=== PATIENT | female | born 1970 | race Caucasian/White ===

== ENCOUNTER 2020-06-15 02:20 | Outpatient (CLI) | payer MEDICAID, SELFPAY ==
[2020-06-15 08:25] LABS: Calculated LDL 123 mg/dL (<100); Cholesterol 194 mg/dL (<200); Glucose 86 mg/dL (74-106); HDL Cholesterol 47 mg/dL (40-60); Triglyceride 123 mg/dL (<150)
== END 2020-06-15 02:40 ==
PROVIDERS: PCP Nurse Practitioner Family; Visit Provider Nurse Practitioner Family
DX: Z00.00 Encounter for general adult medical examination without abnormal findings (principal)
CPT/HCPCS: 36415; 80061; 82947

== ENCOUNTER 2020-06-16 09:51 | Emergency (ER) | payer MEDICAID, SELFPAY ==
[2020-06-16] VITALS (37 sets, daily range): BP systolic 106–138; BP diastolic 45–113; PULSE 51–88; RESP 7–29; TEMP 36.5; O2SAT 93–100
--- NOTE | 2020-06-16 09:44 | ED.GENADUL_ITS ---
Discharge Plan Disposition Patient Disposition: HOME Condition: Improving Discharge Details Clinical Impression: Colitis, Vomiting and diarrhea Primary Care Provider: Mathew Martinez ED Provider: Francoise Salgado Home Meds and New Rx's Prescriptions: New ciprofloxacin HCl [Cipro] 500 mg tablet 500 mg PO BID 5 Days Qty: 10 RF: 0 metronidazole [Flagyl] 500 mg tablet 500 mg PO BID 5 Days Qty: 10 RF: 0 promethazine 25 mg tablet 25 mg PO TID PRN (Reason: nausea and vomiting) Qty: 7 RF: 0 Continued fexofenadine [Vickie] 60 MG tablet 60 mg DAILY RF: 0 cholecalciferol (vitamin D3) 400 UNIT tablet,chewable 400 unit PO RF: 0 meclizine 25 MG tablet,chewable 25 mg PO PRN Qty: 30 RF: 0 valacyclovir [Valtrex] 1,000 MG tablet 1,000 mg PO DAILY Qty: 5 RF: 3 zolmitriptan [Zomig] 5 MG tablet 2.5 - 5 mg PO DAILY PRNQty: 10 RF: 6 magnesium hydroxide [Milk of Magnesia] 400 MG/5 ML suspension 30 ml PO HS PRNQty: 1 RF: 3 docusate sodium [Colace] 100 MG capsule 300 mg PO HS Qty: 30 RF: 3 atenolol 25 MG tablet 25 mg PO DAILY Qty: 30 RF: 3 glycerin (adult) [Suppository Adult] 1 EACH suppository 1 ea RC PRN Qty: 60 RF: 3 fluconazole 150 MG tablet 150 mg PO ONCE Qty: 1 RF: 4 ibuprofen [Advil] 200 MG tablet 800 mg PO PRN (Reason: Pain) RF: 0 Discharge Instructions Instructions: Acute Nausea and Vomiting (ED), Acute Diarrhea (ED), Colitis (ED) Additional Instructions: Drink plenty of fluids and get plenty of rest. Take the Phenergan as needed and directed for nausea and vomiting. Take the antibiotics until finished. You will receive a call from care management regarding a follow-up appointment with the primary care doctor to establish care for reassessment of your vomiting and diarrhea. Return immediately to the emergency department if you develop any worsening or new concerning symptoms. Discharge Data Discharge Date/Time-TO BE ENTERED AT DEPARTURE: 06/16/20 15:25 Discharge Physician: Francoise Salgado Medical Decision Making 1100 -- 49yo F with vomiting and lower abdominal pain since this morning. Vitals within normal limits. She appears uncomfortable and is actively vomiting upon evaluation. She has epigastric diffuse lower abdominal tenderness. She appears nontoxic. Differential diagnosis includes appendicitis, colitis, diverticulitis, gastroenteritis, bowel obstruction. She has an allergy to iodine which causes hives. Discussed with radiology who will give patient barium p.o. Will check screening labs, give a dose of Compazine and morphine and reassess. Labs reviewed. White blood cell count 12. Troponin negative. Lipase normal. 1145 -- Patient reassessed and she now has watery brown diarrhea. Stool sample obtained. She is still complaining of nausea, will give a dose of Phenergan and Dilaudid and reassess. Patient just started drinking p.o. contrast for CAT scan. 1300 -- patient reassessed and she has had multiple episodes of watery mixed with formed brown stool. C. difficile screen negative. 1400 --CT reviewed and notes left-sided colitis. There is also a possible subtle lytic bone lesion to L1. Patient was informed of results of CT. Patient reassessed and she feels much better. She was able to take p.o. and feels good to go home. She had significant abdominal pain and a white blood cell count of 12, will cover with antibiotics. Patient placed on care management list to arrange for a follow-up appointment with the PCP to establish care and follow-up on colitis and L1 lytic bone lesion. Usual and customary return precautions given prior to discharge. Medical Records Medical records reviewed: Yes I reviewed the patient's medical records. Imaging Data Radiologic Study: Radiologist's impression: CT Abdomen And Pelvis Without Contrast Exam date and time: 06/16/2020 10:22 AM Age: 49 years old Clinical indication: Other: Epigastric and diffuse lover abd pain TECHNIQUE: Imaging protocol: Computed tomography of the abdomen and pelvis without contrast. Radiation optimization: All CT scans at this facility use at least one of these dose optimization techniques: automated exposure control; mA and/or kV adjustment per patient size (includes targeted exams where dose is matched to clinical indication); or iterative reconstruction. Other technique: GI contrast given. COMPARISON: No relevant prior studies available. FINDINGS: Liver: Normal. No mass. Gallbladder and bile ducts: Normal. No calcified stones. No ductal dilation. Pancreas: Normal. No ductal dilation. Spleen: Normal. No splenomegaly. Adrenals: Normal. No mass. Kidneys and ureters: Normal. No hydronephrosis. Stomach and bowel: There is focal wall edema involving the splenic flexure and descending colon with mild adjacent inflammatory change. This extends to a lesser degree to the rectal level. There may be mild involvement of the distal transverse colon. Appendix: No evidence of appendicitis. Intraperitoneal space: Unremarkable. No free air. No significant fluid collection. Vasculature: Unremarkable. No abdominal aortic aneurysm. Lymph nodes: Unremarkable. No enlarged lymph nodes. Urinary bladder: The bladder is not well distended. Reproductive: Status post bilateral tubal ligation. Bones/joints: There is some ill-defined lucency inferior endplate L1 at the midline into the left of midline 11 mm. Soft tissues: Unremarkable. IMPRESSION: 1. Left-sided colitis. 2. Concern for subtle lytic bone lesion L1. Lab Data Lab results reviewed: Yes I reviewed the patient's lab results. Labs: 06/16/20 11:45 Stool Clostridioides difficile Screen - Final Laboratory Tests Range/Units 06/16/20 06/16/20 06/16/20 10:04 10:04 11:43 WBC (4.4-10.8) 10^3/uL 12.27 H RBC (3.93-5.22) 10^6/uL 4.48 Hgb (11.2-15.7) g/dL 11.1 L Hct (36.0-46.0) % 35.7 L MCV (80-95) fL 79.7 L MCH (27.0-33.0) pg 24.8 L MCHC (32.0-36.0) % 31.1 L RDW (11.7-14.6) % 14.8 H Plt Count (130-400) 10^3/uL 482 H MPV (8.0-11.0) fL 9.8 Immature Gran % 0.4 Neutrophils % 79.1 Lymphocytes % 14.5 Monocytes % 3.4 Eosinophils % 2.0 Basophils % 0.6 Nucleated RBC % % 0 Absolute Neutrophils (1.2-6.7) 10^3/uL 9.71 H Absolute Lymphocytes (1.2-3.4) 10^3/uL 1.78 Absolute Monocytes (0.1-0.8) 10^3/uL 0.42 Absolute Eosinophils (0.0-0.7) 10^3/uL 0.25 Absolute Basophils (0.0-0.2) 10^3/uL 0.07 Sodium (136-145) mmol/L 136 Potassium (3.5-5.1) mmol/L 3.4 L Chloride (98-107) mmol/L 104 Carbon Dioxide (21.0-32.0) mmol/L 21.3 Anion Gap (3-11) mmol/L 10.7 BUN (7-18) mg/dL 22 H Creatinine (0.55-1.02) mg/dL 0.73 Estimated GFR/1.73 m2 (mL/min/1.73m2) >= 60.00 Glucose (74-106) mg/dL 142 H Calcium (8.5-10.1) mg/dL 9.3 Magnesium (1.8-2.4) mg/dL 2.3 Total Bilirubin (0.2-1.0) mg/dL 0.6 AST (15-37) U/L 16 ALT (14-59) U/L 18 Alkaline Phosphatase (46-116) U/L 62 Troponin I (<0.06) ng/mL < 0.05 Total Protein (6.4-8.2) g/dL 7.0 Albumin (3.4-5.0) g/dL 3.5 Lipase (73-393) U/L 78 Stl C.difficile Tox PCR Cancelled HPI General Mode of arrival: EMS . Date/Time Provider Initiated Documentation: 06/16/20 10:43 . Limitations to Documentation: no limitations . Information obtained by: patient . HPI Narrative: Patient is a 49-year-old female with a history of migraine, depression who presents for sudden onset of vomiting and lower abdominal pain that started this morning. Patient states she has vomited multiple times which is mainly been clear and bile. She states her abdominal pain feels severe, constant and cramping across the lower abdomen. She states she has been constipated with small hard bowel movements for the past few days but states this is not unusual for her. She denies taking any recent narcotics. She denies any recent antibiotics, recent travel, recent known sick contacts. She denies any fever, chest pain, shortness of breath, diarrhea or urinary symptoms. Related Data Home Medications Medication Instructions Recorded Confirmed cholecalciferol (vitamin D3) 400 unit PO tab.chew 10/25/12 fexofenadine [Vickie] 60 mg DAILY 10/25/12 meclizine 25 mg PO PRN #30 tab-cap 12/22/12 ibuprofen [Advil] 800 mg PO PRN 12/23/12 12/23/12 valacyclovir [Valtrex] 1,000 mg PO DAILY #5 tab-cap 02/01/14 zolmitriptan [Zomig] 2.5 - 5 mg PO DAILY PRN #10 tab 02/01/14 docusate sodium [Colace] 300 mg PO HS #30 tab-cap 09/06/14 magnesium hydroxide [Milk of 30 ml PO HS PRN #1 bottle 09/06/14 Magnesia] atenolol 25 mg PO DAILY #30 tab-cap 09/11/14 glycerin (adult) [Suppository 1 ea RC PRN #60 supp.rect 09/11/14 Adult] fluconazole 150 mg PO ONCE #1 tab-cap 10/10/14 ciprofloxacin HCl [Cipro] 500 mg PO BID 5 Days #10 tab 06/16/20 metronidazole [Flagyl] 500 mg PO BID 5 Days #10 tab 06/16/20 promethazine 25 mg PO TID PRN #7 tab 06/16/20 Previous Rx's Medication Instructions Recorded ciprofloxacin HCl [Cipro] 500 mg PO BID 5 Days #10 tab 06/16/20 metronidazole [Flagyl] 500 mg PO BID 5 Days #10 tab 06/16/20 promethazine 25 mg PO TID PRN #7 tab 06/16/20 Allergies Allergy/AdvReac Type Severity Reaction Status Date / Time iodine Allergy Mild HIVES Unverified 10/10/14 14:29 latex Allergy BLISTERS Unverified 10/10/14 14:29 Review of Systems All systems reviewed & are unremarkable except as noted in HPI and below Constitutional Constitutional: Reports as per HPI, Denies chills and Denies fever(s) Eyes Eyes: Denies blurry vision ENT Ears, Nose, Mouth, and Throat: Denies dizziness, Denies sore throat and Denies throat swelling Cardiovascular Cardiovascular: Denies chest pain and Denies dyspnea Respiratory Respiratory: Denies cough and Denies dyspnea Gastrointestinal Gastrointestinal: Reports abdominal pain, Denies diarrhea and Denies vomiting Genitourinary Genitourinary: Denies hematuria and Denies dysuria Musculoskeletal Musculoskeletal: Denies back pain and Denies numbness Integumentary/Breasts Skin/Breast: Denies lesions and Denies rash Neurologic Neurologic: Denies dizziness, Denies localized weakness and Denies numbness Allergic/Immunologic Allergic/Immunologic: Denies throat swelling [facility] Medical History (Updated 06/16/20 @ 14:51 by Francoise Salgado DO) Depression Genital herpes simplex One outbreak on gluteus - no recurrences. Migraine Seasonal allergic rhinitis Surgical History wisdom teeth extraction general anesthesia - no N/V Family History Sister No problems noted. Social History Smoking/Tobacco Use Status: Never Drug use: Never Substance use type: does not use Do you feel safe at home: Yes Do you feel safe in your relationship?: Yes Exam Const General: cooperative and in distress Orientation: alert, awake and oriented x3 HENMT Head: normal to inspection Face and sinus: normal facial exam Eyes General: appearance normal, both eyes and all related structures EOM: EOM intact bilaterally Neck Neck: normal visual inspection and No submandibular swelling Lymphatic: no lymphadenopathy noted Chest Chest: normal inspection of the chest and no tenderness Resp Effort & Inspection: normal respiratory effort and able to speak in complete sentences Auscultation: clear to auscultation bilaterally Cardio Rate: regular rate Rhythm: regular rhythm GI Inspection: normal to inspection Palpation: soft, not firm, not rigid and tender in the epigastrum, in the LLQ, in the RLQ and suprapubicly Auscultation: hypoactive bowel sounds Back/Spine/Pelvis Pelvis: no pain with anterior-posterior compression Skin General skin exam: no rashes or lesions noted Neuro General: patient alert, patient awake and patient oriented x3 Cognition: normal cognition Speech: speech normal Motor: muscle tone normal throughout Sensory Exam: no sensory deficits noted Extrem General: normal to inspection, full ROM, capillary refill normal, no calf tenderness bilaterally and no edema Psych Appearance: grossly normal Mental Status: mental status grossly normal Speech and Movement: speech and movement normal Affect: normal affect
[2020-06-16] MEDS: Ondansetron 4 MG/2 ML VIAL (10:06)
[2020-06-16 10:17] LABS: Abs Immature Grans 0.05 10^3/uL (0.0-0.06); Absolute Basophil Count 0.07 10^3/uL (0.0-0.2); Absolute Lymphocyte Count 1.78 10^3/uL (1.2-3.4); Absolute Monocyte Count 0.42 10^3/uL (0.1-0.8); Absolute Neutrophil Count 9.71 10^3/uL (1.2-6.7); Basophils % 0.6; HCT 35.7 % (36.0-46.0); HGB 11.1 g/dL (11.2-15.7); Immature Grans % 0.4; Lymphocytes % 14.5; MCH 24.8 pg (27.0-33.0); MCHC 31.1 % (32.0-36.0); MCV 79.7 fL (80-95); MPV 9.8 fL (8.0-11.0); Monocytes % 3.4; Neutrophils % 79.1; Nucleated RBC 0 %; Platelet Count 482 10^3/uL (130-400); RBC 4.48 10^6/uL (3.93-5.22); RDW 14.8 % (11.7-14.6); RDW-SD 43.1 fL; WBC 12.27 10^3/uL (4.4-10.8)
[2020-06-16 10:20] LABS: Absolute Eosinophil Count 0.25 10^3/uL (0.0-0.7)
[2020-06-16] MEDS: Normal Saline 1,000 ML 1000 ML IV ×2 (10:26→14:00)
[2020-06-16 10:32] LABS: ALT 18 U/L (14-59); AST 16 U/L (15-37); Albumin 3.5 g/dL (3.4-5.0); Alkaline Phosphatase 62 U/L (46-116); Anion Gap 10.7 mmol/L (3-11); BUN 22 mg/dL (7-18); Bilirubin, Total 0.6 mg/dL (0.2-1.0); CO2 21.3 mmol/L (21.0-32.0); CREATININE 0.73 mg/dL (0.55-1.02); Calcium 9.3 mg/dL (8.5-10.1); Chloride 104 mmol/L (98-107); Glucose 142 mg/dL (74-106); Lipase 78 U/L (73-393); Magnesium 2.3 mg/dL (1.8-2.4); Potassium 3.4 mmol/L (3.5-5.1); Sodium 136 mmol/L (136-145); Troponin I < 0.05 ng/mL (<0.06)
[2020-06-16] MEDS: Prochlorperazine 10 MG/2 ML VIAL IVP (10:42)
[2020-06-16] MEDS: diphenhydrAMINE 50 MG/ML VIAL 25 MG IVP (10:42)
[2020-06-16] MEDS: HYDROmorphone 2 MG/ML VIAL 0.5 MG IVP (12:03)
--- NOTE | 2020-06-16 14:00 | DI.CT_ITS ---
EXAM: CT ABDOMEN PELVIS WO CLINICAL HISTORY: epigastric and diffuse lower abd pain COMPARISON: US ABDOMEN ULTRASOUND (P) from 03/21/2013 US ABDOMEN ULTRASOUND (P) from 03/21/2013 FINDINGS: CT examination of the abdomen and pelvis was performed without IV contrast administration. Oral cont rast was administered and lies in the stomach and duodenum. Images obtained through the lung bases are unremarkable. There are multiple small low-attenuation hepatic lesions, largest lies in the right hepatic lobe late rally and measures up to about 15 millimeters in diameter. The small hepatic lesions have fairly davon ogeneous internal appearance and measure near water density but the largest lesion and a couple of th e other small lesions have questionably irregular borders. Additional evaluation with hepatic ultras ound recommended to confirm that these are cysts. Spleen is unremarkable. Pancreas unremarkable by CT criteria. Gallbladder and bile ducts are CT nor mal. Abdominal aorta is of normal diameter. No significant abdominal wall hernia seen. Adrenals and kidneys are unremarkable. No urinary tract calcification or obstruction. Vascular clips noted in the adnexa bilaterally. Uterus grossly unremarkable in appearance by noncont rast criteria. Appendix is not specifically visualized but there is no evidence of appendicitis. There is apparent wall thickening and pericolonic fat edema descending colon and splenic flexure musa on, the findings are suspicious for colitis. There is no evidence of obstruction. Incidental note is made of a poorly defined rounded lucent lesion of the vertebral body of L1, this m easures up to about 15 millimeters in diameter on vertical axis. This may represent hemangioma but m alignancy is not excluded. Correlation with lumbosacral spine MRI recommended. No additional convin cing lytic lesions identified in the visualized bones. IMPRESSION: Findings consistent with colitis involving left colon as described above. Indeterminate lytic lesion of L1 vertebral body. Correlation with MRI of the lumbar spine recommende d with contrast enhanced MRI obtained if the lesion does not have typical hemangioma appearance on no ncontrast MRI. RADIATION DOSE DELIVERED: 897.32mGy.cm Total DLP
--- NOTE | 2020-06-16 14:06 | DI.VRAD_ITS ---
PROCEDURE INFORMATION: Exam: CT Abdomen And Pelvis Without Contrast Exam date and time: 06/16/2020 10:22 AM Age: 49 years old Clinical indication: Other: Epigastric and diffuse lover abd pain TECHNIQUE: Imaging protocol: Computed tomography of the abdomen and pelvis without contrast. Radiation optimization: All CT scans at this facility use at least one of these dose optimization techniques: automated exposure control; mA and/or kV adjustment per patient size (includes targeted exams where dose is matched to clinical indication); or iterative reconstruction. Other technique: GI contrast given. COMPARISON: No relevant prior studies available. FINDINGS: Liver: Normal. No mass. Gallbladder and bile ducts: Normal. No calcified stones. No ductal dilation. Pancreas: Normal. No ductal dilation. Spleen: Normal. No splenomegaly. Adrenals: Normal. No mass. Kidneys and ureters: Normal. No hydronephrosis. Stomach and bowel: There is focal wall edema involving the splenic flexure and descending colon with mild adjacent inflammatory change. This extends to a lesser degree to the rectal level. There may be mild involvement of the distal transverse colon. Appendix: No evidence of appendicitis. Intraperitoneal space: Unremarkable. No free air. No significant fluid collection. Vasculature: Unremarkable. No abdominal aortic aneurysm. Lymph nodes: Unremarkable. No enlarged lymph nodes. Urinary bladder: The bladder is not well distended. Reproductive: Status post bilateral tubal ligation. Bones/joints: There is some ill-defined lucency inferior endplate L1 at the midline into the left of midline 11 mm. Soft tissues: Unremarkable. IMPRESSION: 1. Left-sided colitis. 2. Concern for subtle lytic bone lesion L1. Dictated and Authenticated by: Merari Morley MD. Ordering:LASHELL Owusu MD
[2020-06-16] MEDS: metroNIDAZOLE 500 MG TAB, 3 TABS/BTL PO (15:07)
== END 2020-06-16 15:25 | disposition home or self-care (01) ==
PROVIDERS: Emergency Provider Physician Assistant; PCP Nurse Practitioner Family
DX: R10.30 Lower abdominal pain, unspecified (principal); K52.9 Noninfective gastroenteritis and colitis, unspecified; R19.4 Change in bowel habit; R11.2 Nausea with vomiting, unspecified; R93.7 Abnormal findings on diagnostic imaging of other parts of musculoskeletal system; Z91.041 Radiographic dye allergy status
CPT/HCPCS: 36415; 80053; 83690; 87493; 87505; 96361; 96365; 96375; 99284; 74176; 83735; 84484; 85025; 87324; 99285; J0780; J1200; J2405

== ENCOUNTER 2020-06-19 09:27 | Outpatient (CLI) | payer MEDICAID, SELFPAY ==
--- NOTE | 2020-06-19 09:32 | DI.RAD_ITS ---
EXAM: XR SHOULDER LT COMPLETE 2+V CLINICAL HISTORY: lt shoulder pain TECHNIQUE: COMPARISON: No exams were available for comparison FINDINGS: Two views were obtained. There may be slight narrowing of cartilaginous joint space of the glenohume ral joint. Mild marginal osteophyte formation noted at the glenohumeral and acromioclavicular articu lations. No other significant bony or soft tissue abnormality seen. IMPRESSION: Mild DJD as described above. RADIATION DOSE DELIVERED: Total DLP
--- NOTE | 2020-06-19 10:14 | DI.RAD_ITS ---
EXAM: XR LUMBAR SPINE AP, LAT CLINICAL HISTORY: lytic lesion TECHNIQUE: COMPARISON: CT CT ABDOMEN PELVIS WO from 06/16/2020 FINDINGS: Three views were obtained. Note is made of contrast material in the colon. Bowel gas pattern is unr emarkable. Recent abdominal CT showed question lytic lesion L1 vertebral body. This is not appreciated on plain films. Correlation with MRI of the lumbosacral spine with and without contrast is recommended. Mild degenerative changes of the lumbar spine noted. IMPRESSION: Suspected lytic lesion seen on CT of the L1 vertebral body is not appreciated on plain films. This does not exclude the possibility of malignancy, MR examination of the lumbar spine with and without c ontrast administration is recommended. RADIATION DOSE DELIVERED: Total DLP
== END 2020-06-19 09:47 ==
PROVIDERS: PCP Nurse Practitioner Family; Referring Provider Nurse Practitioner Family; Visit Provider Physician Assistant Surgical
DX: M89.8X8 Other specified disorders of bone, other site; M19.012 Primary osteoarthritis, left shoulder
CPT/HCPCS: 72100; 73030

== ENCOUNTER 2020-10-01 15:35 | Outpatient (REF) | payer MEDICAID, SELFPAY ==
[2020-10-01 22:02] LABS: Abs Immature Grans 0.02 10^3/uL (0.0-0.06); Absolute Basophil Count 0.11 10^3/uL (0.0-0.2); Absolute Eosinophil Count 0.38 10^3/uL (0.0-0.7); Absolute Lymphocyte Count 2.21 10^3/uL (1.2-3.4); Absolute Monocyte Count 0.66 10^3/uL (0.1-0.8); Absolute Neutrophil Count 4.81 10^3/uL (1.2-6.7); Basophils % 1.3; Eosinophils % 4.6; HCT 34.8 % (36.0-46.0); HGB 10.5 g/dL (11.2-15.7); Immature Grans % 0.2; MCH 23.5 pg (27.0-33.0); MCHC 30.2 % (32.0-36.0); MCV 77.9 fL (80-95); Monocytes % 8.1; Neutrophils % 58.8; Nucleated RBC 0 %; Platelet Count 434 10^3/uL (130-400); RBC 4.47 10^6/uL (3.93-5.22); RDW 15.3 % (11.7-14.6); RDW-SD 43.2 fL; WBC 8.19 10^3/uL (4.4-10.8)
[2020-10-01 22:08] LABS: COMMENT (LAB VIEW ONLY) 168.29 mg/dL; Microalb ug/mg Crea 14.9 ug/mg Cr
[2020-10-01 22:21] LABS: Iron 13 ug/dL (50-170); Total Iron Binding Capacity 390 ug/dL (250-450); Transferrin Sat 3 % (15-50)
[2020-10-01 22:22] LABS: Hemoglobin A1C 5.8 % (<5.7)
[2020-10-01 22:58] LABS: Ferritin 6 ng/mL (8-252); Magnesium 2.2 mg/dL (1.8-2.4); TSH (W/Ref FT4) 2.44 uIU/mL (0.36-3.74); Vitamin B12 362 pg/mL (193-986)
== END 2020-10-01 15:36 | disposition home or self-care (01) ==
LOC: NCHCN 15:35
PROVIDERS: PCP Nurse Practitioner Family; Visit Provider Nurse Practitioner Family
DX: K29.50 Unspecified chronic gastritis without bleeding (principal); I10 Essential (primary) hypertension; K59.09 Other constipation; R42 Dizziness and giddiness; E66.9 Obesity, unspecified; N95.8 Other specified menopausal and perimenopausal disorders; R06.83 Snoring; G43.109 Migraine with aura, not intractable, without status migrainosus
CPT/HCPCS: 82043; 82570; 82607; 82728; 83036; 83540; 83550; 83735; 84443; 85025

== ENCOUNTER 2020-10-08 00:51 | Outpatient (CLI) | payer MEDICAID, SELFPAY ==
--- NOTE | 2020-10-08 | DI.MAMMO_ITS ---
EXAM: MG MAMMO SCREENING CLINICAL HISTORY: SCREENING, Z12.31. TECHNIQUE: Bilateral full field digital CC and MLO mammographic images were obtained with 3D tomosyn thesis and utilizing computer aided detection (CAD). COMPARISON: Prior mammograms dating back to 2011, the most recent being September 2013. There are no interval mammograms since 2013. Both grandmothers were diagnosed with breast cancer. FINDINGS: The fibroglandular tissue is moderately dense, this decreasing the sensitivity mammogram for finding in underlying lesions. There are no spiculated masses nor malignant appearing microcalcification groups. There are multiple new bilateral benign-appearing microcalcifications which were not evident in 2014. No new architectur al distortion or skin thickening-traction IMPRESSION: Benign findings. No radiographic evidence of malignancy. BI-RADS Category 2 - Benign Findings Breast Density - Category C - Heterogeneously dense Breast density Category C or D implies that the patient has dense breast tissue. Dense breast tissue can make it harder to find cancer on a mammogram. Dense breast tissue is also associated with an incr eased risk of breast cancer. This information about the result of the mammogram report was provided to the patient to raise their awareness. Use this report when you speak with the patient about their risks for breast cancer, which includes their family history. At that time, you may recommend additional screening tests (Ultrasoun d or MRI) as these tests may add significant information. A negative radiographic report should not delay biopsy if a dominant or clinically suspicious mass is present. Up to ten percent of cancers are not identified on mammography. A negative report may reinforce clinical impression. Adenosis and dense breasts may obscure an underlying neoplasm. False positive reports average 6 to 10%. Patient will receive a letter notifying them of these results.
== END 2020-10-08 00:52 ==
LOC: DI 00:51
PROVIDERS: PCP Nurse Practitioner Family; Visit Provider Nurse Practitioner Family
DX: Z12.31 Encounter for screening mammogram for malignant neoplasm of breast (principal); R92.0 Mammographic microcalcification found on diagnostic imaging of breast
CPT/HCPCS: 77063; 77067

== ENCOUNTER 2020-11-26 12:56 | Outpatient (REF) | payer MEDICAID, SELFPAY ==
--- NOTE | 2020-11-26 10:50 | PAPFT_PTH ---
PATIENT: Kathleen Sanchez LOC: [facility]#:[id number] AGE/SX: 50/F ROOM: RE11/26/[address]: Teodora Carty : 1970 BED: DIS: 11/26/2020 SPEC #: [id number] RECD: 11/26/20 13:23 STATUS: GUILLE REJose A #: [id number] NATAN: 11/26/20 10:[address]: Teodora Carty DEPT: [facility] Cytology RECD BY: Rosaura Cleveland ENTERED: 11/26/20 13:23 SP TYPE: PAPFT OTHR DR: Mathew Martinez Tissues: 1 - CX/ENDOCX FOR PAP SMEARS Procedures: PAP THIN PREP/UVM Screening HPV DNA PROBE Comments: [id number]
[2020-11-26 21:32] LABS: Abs Immature Grans 0.02 10^3/uL (0.0-0.06); Absolute Basophil Count 0.06 10^3/uL (0.0-0.2); Absolute Eosinophil Count 0.35 10^3/uL (0.0-0.7); Absolute Monocyte Count 0.62 10^3/uL (0.1-0.8); Absolute Neutrophil Count 3.62 10^3/uL (1.2-6.7); Basophils % 0.9; Eosinophils % 5.2; HCT 37.5 % (36.0-46.0); HGB 11.8 g/dL (11.2-15.7); Immature Grans % 0.3; MCH 25.3 pg (27.0-33.0); MCHC 31.5 % (32.0-36.0); MCV 80.3 fL (80-95); Monocytes % 9.3; Neutrophils % 54.3; Nucleated RBC 0 %; Platelet Count 361 10^3/uL (130-400); RBC 4.67 10^6/uL (3.93-5.22); RDW 19.3 % (11.7-14.6); RDW-SD 55.7 fL; WBC 6.67 10^3/uL (4.4-10.8)
[2020-11-26 21:40] LABS: Iron 29 ug/dL (50-170); Total Iron Binding Capacity 336 ug/dL (250-450); Transferrin Sat 9 % (15-50)
[2020-11-26 21:54] LABS: Ferritin 13 ng/mL (8-252)
== END 2020-11-26 12:57 | disposition home or self-care (01) ==
LOC: NCHCN 12:56
PROVIDERS: PCP Nurse Practitioner Family; Visit Provider Nurse Practitioner Family
DX: D50.9 Iron deficiency anemia, unspecified (principal); R73.03 Prediabetes; E66.9 Obesity, unspecified; N95.9 Unspecified menopausal and perimenopausal disorder; Z12.4 Encounter for screening for malignant neoplasm of cervix; Z01.419 Encounter for gynecological examination (general) (routine) without abnormal findings; Z11.51 Encounter for screening for human papillomavirus (HPV)
CPT/HCPCS: 88142; 82728; 83540; 83550; 85025; 87624

== ENCOUNTER 2021-03-04 10:34 | Outpatient (REF) | payer MEDICAID, SELFPAY ==
[2021-03-04 17:27] LABS: Hemoglobin A1C 5.7 % (<5.7)
[2021-03-04 17:39] LABS: Iron 166 ug/dL (50-170)
== END 2021-03-04 10:35 | disposition home or self-care (01) ==
LOC: NCHCN 10:34
PROVIDERS: PCP Nurse Practitioner Family; Visit Provider Nurse Practitioner Family
DX: D50.9 Iron deficiency anemia, unspecified; E66.3 Overweight; R73.03 Prediabetes; M75.01 Adhesive capsulitis of right shoulder; N95.9 Unspecified menopausal and perimenopausal disorder; I10 Essential (primary) hypertension
CPT/HCPCS: 83036; 83540

== ENCOUNTER → 2022-07-16 01:40 | Outpatient (CLI) | payer MEDICAID, SELFPAY ==
--- NOTE | 2022-07-16 | DI.MAMMO_ITS ---
Exam(s) MAMMO SCREENING EXAM: MAMMO SCREENING CLINICAL HISTORY: SCREENING MAMMO FOR BREAST CANCER Z12.31 TECHNIQUE: Bilateral full field digital CC and MLO mammographic images were obtained with 3D tomosyn thesis and utilizing computer aided detection (CAD). COMPARISON: Available for comparison. FINDINGS: Masses/Architectural Distortion: None seen. Microcalcifications: No suspicious pleomorphic-type are seen. Skin Thickening/Nipple Retraction: None. IMPRESSION: 1. No significant interval change with no specific features of malignancy noted. 2. Unless there is more urgent need, screening mammography is recommended, as per [employer] guidelines. BI-RADS Category 1 - Negative Breast Density - Category C - Heterogeneously dense Breast density category C or D implies that the patient has dense breast tissue. Dense breast tissue is very common and is not abnormal but dense breast tissue can make it harder to find cancer on a ma mmogram. Also, dense breast tissue may increase their breast cancer risk. This information about the result of the mammogram report was provided to the patient to raise their awareness. Use this report when you speak with the patient about their risks for breast cancer, which includes their family hist ory. At that time, you may recommend for more screening tests (Ultrasound or MRI) as they might be us eful based on their risk. A negative radiographic report should not delay biopsy if a dominant or clinically suspicious mass is present. Up to ten percent of cancers are not identified on mammography. A negative report may reinforce clinical impression. Adenosis and dense breasts may obscure an underlying neoplasm. False positive reports average 6 to 10%. Patient will receive a letter notifying them of these results.
== END ==
PROVIDERS: PCP Nurse Practitioner Family; Visit Provider Nurse Practitioner Family
DX: Z12.31 Encounter for screening mammogram for malignant neoplasm of breast (principal)
CPT/HCPCS: 77063; 77067

== ENCOUNTER 2023-01-21 13:30 | Outpatient (REF) | payer MEDICAID, SELFPAY ==
--- NOTE | 2023-01-21 10:00 | SKI_PTH ---
[id number] #:[id number] AGE/SX: 52/F ROOM: RE01/21/[address]: Shona Pritchett : 1970 BED: DIS: 01/21/2023 SPEC #: [id number] RECD: 01/21/23 17:51 STATUS: GUILLE DEAN #: [id number] NATAN: 01/21/23 10:[address]: Shona Pritchett DEPT: Surgical Specimen RECD BY: Rosaura Cleveland ENTERED: 01/21/23 17:52 SP TYPE: DANA JORDAN DR: Teodora Carty Tissues: 1 - SKIN BIOPSY(SHAVE/PUNCH) Procedures: SKIN LEVEL 4 Comments: [id number]
== END 2023-01-21 13:31 | disposition home or self-care (01) ==
LOC: NCHCN 13:30
PROVIDERS: PCP Nurse Practitioner Family; Visit Provider Family Medicine
DX: C44.81 Basal cell carcinoma of overlapping sites of skin (principal); L98.9 Disorder of the skin and subcutaneous tissue, unspecified
CPT/HCPCS: 88305

== ENCOUNTER 2023-05-05 20:05 | Outpatient (REF) | payer MEDICAID, SELFPAY ==
[2023-05-05 21:37] LABS: Abs Immature Grans 0.02 10^3/uL (0.0-0.06); Absolute Basophil Count 0.09 10^3/uL (0.0-0.2); Absolute Eosinophil Count 0.41 10^3/uL (0.0-0.7); Absolute Lymphocyte Count 1.74 10^3/uL (1.2-3.4); Absolute Monocyte Count 0.49 10^3/uL (0.1-0.8); Absolute Neutrophil Count 3.42 10^3/uL (1.2-6.7); Basophils % 1.5; Eosinophils % 6.6; HCT 37.1 % (36.0-46.0); HGB 11.6 g/dL (11.2-15.7); Immature Grans % 0.3; Lymphocytes % 28.2; MCH 25.4 pg (27.0-33.0); MCHC 31.3 % (32.0-36.0); MCV 81 fL (80-95); MPV 10.3 fL (8.0-11.0); Monocytes % 7.9; Neutrophils % 55.5; Platelet Count 400 10^3/uL (130-400); RBC 4.57 10^6/uL (3.93-5.22); RDW 15.7 % (11.7-14.6); RDW-SD 46.6 fL; WBC 6.17 10^3/uL (4.4-10.8)
[2023-05-05 21:56] LABS: Iron 33 ug/dL (50-170); Total Iron Binding Capacity 392 ug/dL (250-450); Transferrin Sat 8 % (15-50)
[2023-05-05 22:09] LABS: Hemoglobin A1C 5.9 % (<5.7)
[2023-05-05 22:19] LABS: ALT 20 U/L (14-59); AST 16 U/L (15-37); Albumin 3.9 g/dL (3.4-5.0); Alkaline Phosphatase 62 U/L (46-116); Anion Gap 8.3 mmol/L (3-11); BUN 17 mg/dL (7-18); Bilirubin, Total 0.4 mg/dL (0.2-1.0); CO2 26.7 mmol/L (21.0-32.0); CREATININE 0.7 mg/dL (0.55-1.02); Calcium 8.7 mg/dL (8.5-10.1); Calculated LDL 132 mg/dL (<100); Chloride 104 mmol/L (98-107); Cholesterol 211 mg/dL (<200); Estimated GFR 102.71 (mL/min/1.73m2); Ferritin 6 ng/mL (8-252); Glucose 84 mg/dL (74-106); HDL Cholesterol 55 mg/dL (40-60); Sodium 139 mmol/L (136-145); Total Protein 7.1 g/dL (6.4-8.2); Triglyceride 120 mg/dL (<150); Vitamin B12 323 pg/mL (193-986)
== END 2023-05-05 20:06 | disposition home or self-care (01) ==
LOC: NCHCN 20:05
PROVIDERS: PCP Nurse Practitioner Family; Visit Provider Nurse Practitioner Family
DX: N92.0 Excessive and frequent menstruation with regular cycle (principal); D50.9 Iron deficiency anemia, unspecified; K59.09 Other constipation; I10 Essential (primary) hypertension; J30.2 Other seasonal allergic rhinitis; G43.109 Migraine with aura, not intractable, without status migrainosus; F32.9 Major depressive disorder, single episode, unspecified
CPT/HCPCS: 80053; 80061; 82607; 82728; 83036; 83540; 83550; 83735; 85025

== ENCOUNTER 2023-11-04 14:22 | Outpatient (REF) | payer MEDICAID, SELFPAY ==
[2023-11-04 14:42] LABS: Abs Immature Grans 0.01 10^3/uL (0.0-0.06); Absolute Basophil Count 0.11 10^3/uL (0.0-0.2); Absolute Eosinophil Count 0.54 10^3/uL (0.0-0.7); Absolute Lymphocyte Count 1.79 10^3/uL (1.2-3.4); Absolute Monocyte Count 0.63 10^3/uL (0.1-0.8); Absolute Neutrophil Count 3.15 10^3/uL (1.2-6.7); Basophils % 1.8; Eosinophils % 8.7; HCT 40.6 % (36.0-46.0); HGB 13.2 g/dL (11.2-15.7); Immature Grans % 0.2; Lymphocytes % 28.7; MCH 27.6 pg (27.0-33.0); MCHC 32.5 % (32.0-36.0); MCV 85 fL (80-95); MPV 10.6 fL (8.0-11.0); Monocytes % 10.1; Neutrophils % 50.5; Platelet Count 350 10^3/uL (130-400); RBC 4.78 10^6/uL (3.93-5.22); RDW 14.2 % (11.7-14.6); RDW-SD 44.3 fL; WBC 6.23 10^3/uL (4.4-10.8)
[2023-11-04 15:13] LABS: Ferritin 12 ng/mL (8-252)
[2023-11-04 15:16] LABS: Hemoglobin A1C 5.8 % (<5.7)
[2023-11-04 15:17] LABS: Iron 72 ug/dL (50-170); Total Iron Binding Capacity 357 ug/dL (250-450); Transferrin Sat 20 % (15-50)
== END 2023-11-04 14:23 | disposition home or self-care (01) ==
LOC: NCHCN 14:22
PROVIDERS: PCP Nurse Practitioner Family; Referring Provider Nurse Practitioner Family; Visit Provider Nurse Practitioner Family
DX: E66.9 Obesity, unspecified (principal); D50.9 Iron deficiency anemia, unspecified
CPT/HCPCS: 82728; 83036; 83540; 83550; 85025

== ENCOUNTER 2024-06-02 17:34 | Outpatient (REF) | payer MEDICAID, SELFPAY ==
[2024-06-02 17:52] LABS: Anion Gap 9.1 mmol/L (3-11); BUN 17 mg/dL (7-18); CO2 27.9 mmol/L (21.0-32.0); CREATININE 0.8 mg/dL (0.55-1.02); Calcium 9.1 mg/dL (8.5-10.1); Chloride 106 mmol/L (98-107); Estimated GFR 86.96 (mL/min/1.73m2); Glucose 86 mg/dL (74-106); Magnesium 2.2 mg/dL (1.8-2.4); Potassium 4.4 mmol/L (3.5-5.1); Sodium 143 mmol/L (136-145); Vitamin B12 545 pg/mL (193-986)
[2024-06-02 18:06] LABS: COMMENT (LAB VIEW ONLY) 44.07 mg/dL
== END 2024-06-02 17:35 | disposition home or self-care (01) ==
LOC: NCHCN 17:34
PROVIDERS: PCP Nurse Practitioner Family; Visit Provider Nurse Practitioner Family
DX: I10 Essential (primary) hypertension (principal)
CPT/HCPCS: 80048; 82043; 82570; 82607; 83735

== ENCOUNTER 2025-07-12 10:38 | Outpatient (REF) | payer MEDICAID, SELFPAY ==
[2025-07-12 14:38] LABS: HCT 39.4 % (36.0-46.0); HGB 13.1 g/dL (11.2-15.7); MCH 28.9 pg (27.0-33.0); MCHC 33.2 % (32.0-36.0); MCV 87 fL (80-95); MPV 9.9 fL (8.0-11.0); Platelet Count 351 10^3/uL (130-400); RBC 4.54 10^6/uL (3.93-5.22); RDW 13.1 % (11.7-14.6); RDW-SD 41.0 fL; WBC 5.40 10^3/uL (4.4-10.8)
[2025-07-12 15:05] LABS: Iron 89 ug/dL (50-170); Magnesium 2.0 mg/dL (1.6-2.6); Total Iron Binding Capacity 344 ug/dL (250-425); Transferrin Sat 26 % (15-50)
[2025-07-12 15:06] LABS: ALT 17 U/L (10-49); AST 20 U/L (<34); Albumin 4.3 g/dL (3.4-5.0); Alkaline Phosphatase 67 U/L (46-116); Anion Gap 8.3 mmol/L (3-11); BUN 19 mg/dL (9-23); Bilirubin, Total 0.60 mg/dL (0.2-1.2); CO2 27.7 mmol/L (20.0-31.0); Calcium 9.1 mg/dL (8.3-10.6); Chloride 105 mmol/L (98-107); Glucose 82 mg/dL (74-106); Potassium 4.1 mmol/L (3.5-5.1); Sodium 141 mmol/L (136-145); Total Protein 6.5 g/dL (5.7-8.2)
[2025-07-12 15:09] LABS: Ferritin 10 ng/mL (7-271)
[2025-07-12 15:10] LABS: Vitamin B12 341 pg/mL (211-911)
[2025-07-12 15:50] LABS: Hemoglobin A1C 5.8 % (<5.7)
== END 2025-07-12 10:39 | disposition home or self-care (01) ==
LOC: NCHCN 10:38
PROVIDERS: PCP Nurse Practitioner Family; Visit Provider Nurse Practitioner Family
DX: R73.03 Prediabetes (principal); E66.9 Obesity, unspecified; K29.50 Unspecified chronic gastritis without bleeding; I10 Essential (primary) hypertension; E78.2 Mixed hyperlipidemia; Z86.2 Personal history of diseases of the blood and blood-forming organs and certain disorders involving the immune mechanism
CPT/HCPCS: 80053; 85027; 82607; 82728; 83036; 83540; 83550; 83735

== ENCOUNTER 2025-07-28 17:25 | Outpatient (REF) | payer MEDICAID, SELFPAY ==
[2025-07-28 21:56] LABS: Glucose Negative (Negative)
[2025-07-28 21:59] LABS: Microalb ug/mg Crea 11.8 ug/mg Cr
[2025-07-28 22:23] LABS: C & S Indicated? No; RBC 0-2 HPF (0-2); WBC Negative HPF (0-5)
== END 2025-07-28 17:26 | disposition home or self-care (01) ==
LOC: NCHCN 17:25
PROVIDERS: PCP Nurse Practitioner Family; Visit Provider Nurse Practitioner Family
DX: I10 Essential (primary) hypertension (principal); E78.2 Mixed hyperlipidemia
CPT/HCPCS: 81003; 81015; 82043; 82570